=== PATIENT | female | born 1995 | race Caucasian/White ===

== ENCOUNTER 2022-06-03 10:16 | Emergency (ER) | payer MEDICAID ==
[~2022-06-03] VITALS: Ht 157.5 cm; Wt 100.0 kg
[2022-06-03 10:57] LABS: BASOPHILS # (AUTO) 0.1 X10'3 (0-0.2); BASOPHILS % (AUTO) 0.6 % (0-1); EOSINOPHILS # (AUTO) 0.6 X10'3 (0-0.9); EOSINOPHILS % (AUTO) 4.9 % (0-6); HEMOGLOBIN 14.9 g/dl (12.0-16.0); LYMPHOCYTES # (AUTO) 2.8 X10'3 (1.1-4.8); LYMPHOCYTES % (AUTO) 23.9 % (21-51); MEAN CORPUSCULAR HEMOGLOBIN 29.6 PG (27.0-31.0); MEAN CORPUSCULAR HGB CONC 33.9 g/dL (33.0-36.5); MEAN CORPUSCULAR VOLUME 87.5 FL (78-98); MONOCYTES # (AUTO) 0.9 X10'3 (0-0.9); MONOCYTES % (AUTO) 7.4 % (2-12); NEUTROPHILS # (AUTO) 7.4 X10'3 (1.8-7.7); NEUTROPHILS % (AUTO) 63.2 % (42-75); PLATELET COUNT 382 X10'3 (140-440); RED BLOOD COUNT 5.04 X10'6 (4.20-5.60); RED CELL DISTRIBUTION WIDTH 14.2 % (11.5-14.5); WHITE BLOOD COUNT 11.7 X10'3 (4.5-11.0)
[2022-06-03 10:58] LABS: CLARITY,URINE CLEAR (Clear); COLOR,URINE YELLOW (Yellow); GLUCOSE, URINE NEGATIVE (Neg); KETONES,URINE NEGATIVE (Neg); LEUKOCYTE ESTERASE ,URINE NEGATIVE (Neg); NITRITES, URINE NEGATIVE (Neg); OCCULT BLOOD,URINE NEGATIVE (Neg); PH,URINE 7.5 (4.8-8.0); PROTEIN,URINE NEGATIVE (Neg); UROBILINOGEN,URINE 0.2 E.U/dL (0.2-1.0)
[2022-06-03 11:00] LABS: URINE HCG NEGATIVE (NEG)
[2022-06-03 11:06] LABS: UA COLLECTION TYPE NON-SPECIFIED
[2022-06-03 11:22] LABS: ALANINE AMINOTRANSFERASE 23 U/L (12-78); ALBUMIN 3.8 G/DL (3.4-5.0); ALBUMIN/GLOBULIN RATIO 0.9 (1.1-1.5); ALKALINE PHOSPHATASE 94 IU/L (46-116); ANION GAP 10 (8-16); ASPARTATE AMINO TRANSFERASE 18 U/L (10-37); BILIRUBIN,TOTAL 0.4 MG/DL (0.1-1.0); BLOOD UREA NITROGEN 9 MG/DL (7-18); BUN/CREATININE RATIO 12.9 (6.6-38.0); CHLORIDE 103 MMOL/L (99-107); GLUCOSE 95 MG/DL (70-104); LIPASE 68 U/L (73-393); SODIUM 139 MMOL/L (135-145); TOTAL CARBON DIOXIDE 26.2 MMOL/L (24-32); eGFR > 90 ML/MIN
[2022-06-03] MEDS ORDERED: morphine 4 MG/ML inj SYRINge IV ONE (12:25)
[2022-06-03] MEDS ORDERED: ondansetron/PF 4mg/2ml inj IV ONE (12:25)
[2022-06-03] MEDS ORDERED: normal saline 1000ml 1,000 ML IV ONE (12:30)
--- NOTE | 2022-06-03 12:45 | NUR ---
pt to ct
[2022-06-03 13:18] VITALS: BP 135/68
[2022-06-03] MEDS ORDERED: ONDA4TAB12 PO (13:21)
== END 2022-06-03 13:42 | disposition home or self-care (01) ==
LOC: ER 10:17
DX: A08.4 Viral intestinal infection, unspecified (principal)
CPT/HCPCS: 36415; 74176; 80053; 81003; 81025; 83690; 85025; 96361; 96374; 96375; 99284; J2270; J2405; J7030

== ENCOUNTER 2022-06-10 06:21 | Emergency (ER) | payer MEDICAID ==
[~2022-06-10] VITALS: Ht 157.5 cm; Wt 97.7 kg
[~2022-06-10 06:21] MED LIST: ONDA4TAB12 PO
[2022-06-10 07:30] LABS: BASOPHILS % (AUTO) 0.3 % (0-1); EOSINOPHILS # (AUTO) 0.6 X10'3 (0-0.9); EOSINOPHILS % (AUTO) 6.8 % (0-6); HEMATOCRIT 39.6 % (35.0-45.0); HEMOGLOBIN 13.3 g/dl (12.0-16.0); LYMPHOCYTES # (AUTO) 2.1 X10'3 (1.1-4.8); LYMPHOCYTES % (AUTO) 25.4 % (21-51); MEAN CORPUSCULAR HEMOGLOBIN 29.3 PG (27.0-31.0); MEAN CORPUSCULAR HGB CONC 33.6 g/dL (33.0-36.5); MEAN CORPUSCULAR VOLUME 87.3 FL (78-98); MEAN PLATELET VOLUME 7.2 FL (7.4-10.4); MONOCYTES # (AUTO) 0.8 X10'3 (0-0.9); MONOCYTES % (AUTO) 9.4 % (2-12); NEUTROPHILS # (AUTO) 4.8 X10'3 (1.8-7.7); NEUTROPHILS % (AUTO) 58.1 % (42-75); PLATELET COUNT 340 X10'3 (140-440); RED BLOOD COUNT 4.54 X10'6 (4.20-5.60); RED CELL DISTRIBUTION WIDTH 14.1 % (11.5-14.5); WHITE BLOOD COUNT 8.3 X10'3 (4.5-11.0)
[2022-06-10 07:32] LABS: CLARITY,URINE CLEAR (Clear); COLOR,URINE YELLOW (Yellow); GLUCOSE, URINE NEGATIVE (Neg); KETONES,URINE NEGATIVE (Neg); LEUKOCYTE ESTERASE ,URINE NEGATIVE (Neg); NITRITES, URINE NEGATIVE (Neg); OCCULT BLOOD,URINE NEGATIVE (Neg); PH,URINE 6.5 (4.8-8.0); PROTEIN,URINE NEGATIVE (Neg); UROBILINOGEN,URINE 0.2 E.U/dL (0.2-1.0)
[2022-06-10 07:37] LABS: URINE HCG NEGATIVE (NEG)
[2022-06-10 07:43] LABS: UA COLLECTION TYPE CLN CATCH MIDSTREAM
[2022-06-10 07:46] LABS: ALANINE AMINOTRANSFERASE 33 U/L (12-78); ALBUMIN 3.3 G/DL (3.4-5.0); ALBUMIN/GLOBULIN RATIO 0.9 (1.1-1.5); ALKALINE PHOSPHATASE 87 IU/L (46-116); ANION GAP 11 (8-16); ASPARTATE AMINO TRANSFERASE 25 U/L (10-37); BILIRUBIN,TOTAL 0.4 MG/DL (0.1-1.0); BLOOD UREA NITROGEN 9 MG/DL (7-18); BUN/CREATININE RATIO 13.6 (6.6-38.0); CALCIUM 8.6 MG/DL (8.5-10.1); CHLORIDE 105 MMOL/L (99-107); CREATININE 0.66 MG/DL (0.40-0.90); GLUCOSE 103 MG/DL (70-104); LIPASE 83 U/L (73-393); POTASSIUM 3.6 MMOL/L (3.5-5.1); SODIUM 142 MMOL/L (135-145); TOTAL CARBON DIOXIDE 25.6 MMOL/L (24-32); eGFR > 90 ML/MIN
[2022-06-10] MEDS ORDERED: ketorolac trometh. 30mg/ml inj. IM ONE (10:20)
[2022-06-10 11:53] VITALS: BP 122/68
[2022-06-10 14:32] LABS: BETA HCG,QUANTITATIVE 34 mIU/ml
== END 2022-06-10 12:47 | disposition home or self-care (01) ==
LOC: ER 06:22
DX: R89.1 Abnormal level of hormones in specimens from other organs, systems and tissues (principal)
CPT/HCPCS: 36415; 76856; 80053; 81003; 81025; 83690; 84702; 85025; 93976; 96372; 99284; J1885

== ENCOUNTER 2022-06-19 10:24 | Emergency (ER) | payer OTHER, MEDICAID ==
[~2022-06-19] VITALS: Ht 157.5 cm; Wt 95.0 kg
[2022-06-19 10:48] VITALS: BP 127/61
[2022-06-19] MEDS ORDERED: orphenadrine citrate 60mg/2ml inj. IM ONE (11:55)
[2022-06-19] MEDS ORDERED: ondansetron 4mg rapidly disintigrating tab PO ONE (11:55)
[2022-06-19] MEDS ORDERED: ketorolac trometh inj. 60 MG/2 ML VIAL IM ONE (11:55)
[2022-06-19] MEDS ORDERED: acetaminophen/codeine 120mg/12mg per 5ml UD cup PO ONE (11:55)
--- NOTE | 2022-06-19 12:17 | NUR ---
PT REPORTS " I MAY BE ". URINE OBTAINED, PENDING RESULTS BEFORE ADMINISTERING MEDICATIONS AND XRAY.
[2022-06-19 12:29] LABS: URINE HCG NEGATIVE (NEG)
[2022-06-19] MEDS ORDERED: CYCL-1 PO (12:57)
== END 2022-06-19 13:16 | disposition home or self-care (01) ==
LOC: ER 10:25
DX: S39.012A Strain of muscle, fascia and tendon of lower back, initial encounter (principal); Z72.89 Other problems related to lifestyle; Z79.899 Other long term (current) drug therapy; X58.XXXA Exposure to other specified factors, initial encounter; Y93.89 Activity, other specified; Y92.89 Other specified places as the place of occurrence of the external cause; Y99.8 Other external cause status
CPT/HCPCS: 72100; 81025; 96372; 99284; J1885; J2360

== ENCOUNTER 2022-12-11 01:20 | Emergency (ER) | payer MEDICAID, OTHER ==
[~2022-12-11] VITALS: Ht 157.5 cm; Wt 100.0 kg
[~2022-12-11 01:20] MED LIST changes: +CYCL-1 PO
[2022-12-11] MEDS ORDERED: ketorolac trometh. 30mg/ml inj. IV ONE (01:35)
[2022-12-11] MEDS ORDERED: morphine 4 MG/ML inj SYRINge IV ONE ×2 (01:35→02:30)
[2022-12-11] MEDS ORDERED: ondansetron/PF 4mg/2ml inj IV ONE (01:35)
[2022-12-11 01:51] LABS: BASOPHILS # (AUTO) 0.1 X10'3 (0-0.2); BASOPHILS % (AUTO) 0.5 % (0-1); EOSINOPHILS # (AUTO) 1.2 X10'3 (0-0.9); EOSINOPHILS % (AUTO) 7.9 % (0-6); HEMATOCRIT 39.4 % (35.0-45.0); HEMOGLOBIN 13.4 g/dl (12.0-16.0); LYMPHOCYTES # (AUTO) 4.6 X10'3 (1.1-4.8); LYMPHOCYTES % (AUTO) 30.2 % (21-51); MEAN CORPUSCULAR HEMOGLOBIN 29.3 PG (27.0-31.0); MEAN CORPUSCULAR HGB CONC 34.1 g/dL (33.0-36.5); MEAN CORPUSCULAR VOLUME 86.1 FL (78-98); MONOCYTES # (AUTO) 1.4 X10'3 (0-0.9); NEUTROPHILS % (AUTO) 52.4 % (42-75); PLATELET COUNT 358 X10'3 (140-440); RED BLOOD COUNT 4.58 X10'6 (4.20-5.60); WHITE BLOOD COUNT 15.2 X10'3 (4.5-11.0)
[2022-12-11 02:02] LABS: ALANINE AMINOTRANSFERASE 29 U/L (12-78); ALBUMIN 3.4 G/DL (3.4-5.0); ALBUMIN/GLOBULIN RATIO 0.9 (1.1-1.5); ALKALINE PHOSPHATASE 114 IU/L (46-116); ANION GAP 8 (8-16); ASPARTATE AMINO TRANSFERASE 11 U/L (10-37); BILIRUBIN,TOTAL 0.3 MG/DL (0.1-1.0); BLOOD UREA NITROGEN 10 MG/DL (7-18); CALCIUM 8.5 MG/DL (8.5-10.1); CHLORIDE 103 MMOL/L (99-107); CREATININE 0.83 MG/DL (0.40-0.90); GLUCOSE 108 MG/DL (70-104); LIPASE 177 U/L (73-393); POTASSIUM 3.8 MMOL/L (3.5-5.1); SODIUM 137 MMOL/L (135-145); TOTAL CARBON DIOXIDE 26.5 MMOL/L (24-32); TOTAL PROTEIN 7.2 G/DL (6.4-8.2); eGFR 83 ML/MIN
[2022-12-11 02:15] LABS: CLARITY,URINE SLIGHTLY CLOUDY (Clear); COLOR,URINE YELLOW (Yellow); GLUCOSE, URINE NEGATIVE (Neg); KETONES,URINE NEGATIVE (Neg); LEUKOCYTE ESTERASE ,URINE NEGATIVE (Neg); NITRITES, URINE NEGATIVE (Neg); OCCULT BLOOD,URINE NEGATIVE (Neg); PROTEIN,URINE NEGATIVE (Neg); UROBILINOGEN,URINE 0.2 E.U/dL (0.2-1.0)
[2022-12-11 02:20] LABS: UA COLLECTION TYPE CLN CATCH MIDSTREAM
[2022-12-11 02:21] LABS: MUCUS STRANDS MANY /LPF (Neg); SQUAMOUS EPITHELIAL CELL,UR MANY /LPF (FEW); TRANSITIONAL EPI CELLS,URINE FEW /HPF; URINE HCG NEGATIVE (NEG)
[2022-12-11 02:22] LABS: BACTERIA,URINE 1+ /HPF (Neg); WBC,URINE 0-4 /HPF (0-4)
[2022-12-11] MEDS ORDERED: HYDR-3965 PO (03:24)
[2022-12-11] MEDS ORDERED: ONDA8TAB13 PO (03:24)
[2022-12-11 03:38] VITALS: BP 119/77
== END 2022-12-11 03:39 | disposition home or self-care (01) ==
LOC: ER 01:21
DX: K80.20 Calculus of gallbladder without cholecystitis without obstruction (principal)
CPT/HCPCS: 36415; 76700; 80053; 81001; 81025; 83690; 85025; 96374; 96375; 96376; 99285; J1885; J2270; J2405

== ENCOUNTER 2023-04-14 16:27 | Emergency (ER) | payer MEDICAID ==
[~2023-04-14] VITALS: Ht 157.5 cm; Wt 120.0 kg
[~2023-04-14 16:27] MED LIST changes: +ONDA8TAB13 PO
[2023-04-14 16:34] VITALS: BP 121/75; PULSE 78; RESP 18; TEMP 97.8; O2SAT 98
== END 2023-04-14 19:18 | disposition left against medical advice (07) ==
LOC: ER 16:27
DX: R11.2 Nausea with vomiting, unspecified (principal); Z53.21 Procedure and treatment not carried out due to patient leaving prior to being seen by health care provider
CPT/HCPCS: 99281

== ENCOUNTER 2023-10-14 13:11 | Emergency (ER) | payer MEDICAID ==
[~2023-10-14] VITALS: Ht 157.5 cm; Wt 105.2 kg
[2023-10-14 13:20] VITALS: BP 137/87; PULSE 97; TEMP 98.7; O2SAT 98
[2023-10-14] MEDS ORDERED: ketorolac trometh. 30mg/ml inj. IM ONE (14:35)
[2023-10-14] MEDS ORDERED: CYCL-1 PO (14:40)
[2023-10-14] MEDS ORDERED: PRED20TA PO (14:40)
[2023-10-14] MEDS ORDERED: IBUP-1984 PO (14:40)
[2023-10-14 15:07] VITALS: RESP 16
[2023-10-14] MEDS: ketorolac tromethamine 15mg/ml inj. IM ONE (15:07)
[2023-10-14] MEDS: cyclobenzaprine 10mg tablet PO ONE (15:07)
[2023-10-14] MEDS: predniSONE 20 mg tablet PO ONE (15:08)
== END 2023-10-14 15:24 | disposition home or self-care (01) ==
LOC: ER 13:12
DX: S39.012A Strain of muscle, fascia and tendon of lower back, initial encounter (principal); M54.32 Sciatica, left side; Z79.899 Other long term (current) drug therapy; Z79.1 Long term (current) use of non-steroidal anti-inflammatories (NSAID); X58.XXXA Exposure to other specified factors, initial encounter; Y93.89 Activity, other specified; Y92.89 Other specified places as the place of occurrence of the external cause; Y99.8 Other external cause status
CPT/HCPCS: 96372; 99283; J1885; J7512

== ENCOUNTER 2023-11-04 09:49 | Emergency (ER) | payer MEDICAID ==
[~2023-11-04] VITALS: Ht 157.5 cm; Wt 114.0 kg
[2023-11-04 10:13] VITALS: BP 127/83; PULSE 88; O2SAT 100
[2023-11-04] MEDS ORDERED: ketorolac trometh. 30mg/ml inj. IM ONE (12:10)
[2023-11-04] MEDS ORDERED: oxybutynin 5mg tablet PO SCH (12:10)
[2023-11-04] MEDS ORDERED: LIDO700A47 TOP (12:16)
[2023-11-04] MEDS ORDERED: IBUP-1986 PO (12:16)
[2023-11-04] MEDS ORDERED: CYCL-394 PO (12:16)
[2023-11-04] MEDS: oxyCODONE IR 5mg (immed. release) tablet PO ONE (12:57)
[2023-11-04] MEDS: orphenadrine citrate 60mg/2ml inj. IM ONE (12:58)
[2023-11-04] MEDS: ketorolac tromethamine 15mg/ml inj. IM ONE (13:00)
[2023-11-04 13:14] VITALS: RESP 18; TEMP 97.5
== END 2023-11-04 13:16 | disposition home or self-care (01) ==
LOC: ER 09:49
DX: M54.50 Low back pain, unspecified (principal); Z79.899 Other long term (current) drug therapy; Z79.1 Long term (current) use of non-steroidal anti-inflammatories (NSAID)
CPT/HCPCS: 96372; 99284; J1885; J2360

== ENCOUNTER 2023-11-11 11:04 | Emergency (ER) | payer SELFPAY ==
[~2023-11-11] VITALS: Ht 157.5 cm; Wt 109.1 kg
[~2023-11-11 11:04] MED LIST changes: +CYCL-394 PO; +IBUP-1986 PO; +LIDO700A47 TOP
[2023-11-11 12:03] VITALS: BP 140/78; PULSE 100; O2SAT 98
[2023-11-11] MEDS ORDERED: NAPR-56 PO (12:52)
[2023-11-11 13:01] VITALS: RESP 18; TEMP 97.9
== END 2023-11-11 12:57 | disposition home or self-care (01) ==
LOC: ER 11:04
DX: S93.492A Sprain of other ligament of left ankle, initial encounter (principal); Z72.89 Other problems related to lifestyle; Z79.899 Other long term (current) drug therapy; Z79.1 Long term (current) use of non-steroidal anti-inflammatories (NSAID); W18.39XA Other fall on same level, initial encounter; Y93.89 Activity, other specified; Y92.89 Other specified places as the place of occurrence of the external cause; Y99.8 Other external cause status
CPT/HCPCS: 73610; 99284; A6449

== ENCOUNTER 2023-12-08 18:26 | Emergency (ER) | payer MEDICAID ==
[~2023-12-08] VITALS: Ht 157.5 cm; Wt 113.6 kg
[~2023-12-08 18:26] MED LIST changes: -CYCL-394 PO; +NAPR-56 PO
[2023-12-08 18:43] VITALS: BP 126/70; PULSE 82; RESP 18; TEMP 98.9; O2SAT 100
[2023-12-08] MEDS: normal saline 1000ml 1,000 ML IV ONE (20:51)
[2023-12-08] MEDS: ondansetron/PF 4mg/2ml inj IV ONE (20:55)
[2023-12-08] MEDS ORDERED: ONDA8TAB13 PO (21:38)
== END 2023-12-08 21:52 | disposition home or self-care (01) ==
LOC: ER 18:27
DX: R11.2 Nausea with vomiting, unspecified (principal); R19.7 Diarrhea, unspecified; Z72.89 Other problems related to lifestyle; Z79.899 Other long term (current) drug therapy; Z79.2 Long term (current) use of antibiotics
CPT/HCPCS: 96361; 96374; 99283; J2405; J7030

== ENCOUNTER 2024-12-17 12:17 | Emergency (ER) | payer SELFPAY ==
[~2024-12-17] VITALS: Ht 157.5 cm; Wt 100.9 kg
[~2024-12-17 12:17] MED LIST changes: +BUS15T PO; -CYCL-1 PO; -IBUP-1986 PO; +LAMO100T PO; -LIDO700A47 TOP; +LIDO700A47 TP; -NAPR-56 PO; -ONDA4TAB12 PO; -ONDA8TAB13 PO; +SERT-433 PO; +TRAZ150T78 PO
--- NOTE | 2024-12-17 12:52 | Physician Documentation ---
HPI ~ General Chief Complaint: Tooth Problem Stated Complaint: TOOTH PAIN Time Seen by MD: 12:51 Primary Medical Doctor: NELSON AARON History of Present Illness HPI Comment 29-year-old female presents to the emergency department reporting that she has been on Augmentin for the last week for right lower jaw dental pain. She reports no improvement in symptoms, return to [facility], no further interventions were undertaken. She does have an upcoming dental appointment but is concerned because the pain is getting worse, and is involving the right jaw. No fevers or chills, but does endorse feeling overall unwell and having nausea. Medication Reconciliation Allergies: Coded Allergies: No Known Allergies (Unverified , 12/17/24) Scheduled Buspirone HCl (Buspirone HCl), 15 MG PO BID Lamotrigine (LaMICtal tablet), 100 MG PO BID Lidocaine (Lidocaine), 1 PATCH TP DAILY Sertraline HCl (Sertraline HCl), 50 MG PO DAILY Trazodone Hcl (Trazodone Hcl), 150 MG PO HS@20 Past Medical History Past Medical History: *RENAL/*, Chronic Pain Past Surgical History: no surgical history Patient History: FHx: COPD (chronic obstructive pulmonary disease) FHx: cancer Paternal Greatgrandmother Alcohol Use: Occasionally Lives with: S/O Lives In: Home Review of Systems ROS As stated above in the HPI, otherwise all systems are reviewed and negative. Physical Exam Vital Signs: Temperature: 98.5, Source: Temporal, Heart Rate: 80, Respiratory Rate: 16, BP: 156/81, Pulse Oximetry: 99, Weight: 100.910 Oxygen Flow Rate: 0 Physical Exam General: Alert, no apparent distress. HEENT: PERRL, EOMI, no injection, moist mucous membranes. No trismus (+) right mastoid tenderness. Both ear canals are clear altho cerumen partially occludes right canal. TMs visualized as normal. Some erythema surrounds right lower molar, second from last, but no abscess is appreciated. Neck: Full range of motion. Respiratory: Lungs clear, no respiratory distress. Chest: No accessory muscle use. Cardiovascular: Regular rate and rhythm, no murmurs. Gastrointestinal: Soft, nontender, nondistended. Bowels sounds present. Extremities: Normal range of motion, no deformity. Neurologic: Oriented x4. Psychiatric: Normal mood and affect. Skin: Normal color, warm and dry. No edema, no ecchymosis. Progress Results/Orders Results/Orders Orders - EDITH ENCARNACION [employer]CE[employer] FABRICATOR * Iv Access / Saline Lock * (12/17/24 12:59) Ct Facial Bones/Soft Tissue (12/17/24 12:59) Culture Blood (12/17/24 12:59) Completed Orders - EDITH ENCARNACION [employer] FABRICATOR Morphine 4mg/Ml Inj. (Morphine Inj.) (12/17/24 13:00) Ondansetron Inj. (Zofran 4mg/2ml Vial) (12/17/24 13:00) Ct Facial Bones/Soft Tissue (12/17/24 12:59) Ampicillin/Sulbac 3gm/Ns 100ml (Unasyn 3 (12/17/24 12:59) Procalcitonin (12/17/24 12:59) LA (12/17/24 12:59) C-Reactive Protein (12/17/24 12:59) Hcg Serum Ql (12/17/24 12:59) Ketorolac Trometh 15mg/Ml Vial (Toradol (12/17/24 14:10) Prochlorperazine Inj (Compazine Inj) (12/17/24 14:20) Diphenhydramine Inj (Benadryl Inj.) (12/17/24 14:20) Mag & Alum Hydrox/Simeth Susp (Maalox Or (12/17/24 14:20) Famotidine/Pf Iv Inj (Pepcid Iv Inj) (12/17/24 14:20) Electrocardiogram (12/17/24 14:20) Iohexol 300mg/Ml 100ml Inj. (Omnipaque-3 (12/17/24 14:59) Cbc/Diff (12/17/24 15:46) BMP (12/17/24 13:49) Medications Received in ER Medications (Trade) Dose Ordered Sig/Latia Route PRN Reason Start Time Stop Time Status Last Admin Dose Admin (morphine inj.) 4 mg ONCE ONCE IV 12/17/24 13:00 12/17/24 13:02 DC 12/17/24 13:34 4 MG (Zofran 4mg/2ml vial) 4 mg ONCE ONCE IV 12/17/24 13:00 12/17/24 13:02 DC 12/17/24 13:34 4 MG Ampicillin Sodium/ Sulbactam Sodium 100 ml @ 200 mls/hr NOW STAT IV 12/17/24 12:59 12/17/24 13:28 DC 12/17/24 14:51 200 MLS/HR (Toradol injection) 15 mg ONCE ONCE IV 12/17/24 14:10 12/17/24 14:11 DC 12/17/24 14:38 15 MG (Compazine inj) 10 mg ONCE ONCE IV 12/17/24 14:20 12/17/24 14:21 DC 12/17/24 14:38 10 MG (Benadryl inj.) 25 mg ONCE ONCE IV 12/17/24 14:20 12/17/24 14:21 DC 12/17/24 14:38 25 MG (Maalox oral suspension) 30 ml ONCE ONCE PO 12/17/24 14:20 12/17/24 14:21 DC 12/17/24 14:38 30 ML (Pepcid IV inj) 20 mg ONCE ONCE IV 12/17/24 14:20 12/17/24 14:21 DC 12/17/24 14:38 20 MG Vital Signs 12/17/24 12/17/24 12/17/24 12/17/24 12:41 13:34 14:38 14:52 Temp 98.5 Pulse 80 Resp 16 16 16 14 B/P (MAP) 156/81 Pulse Ox 99 O2 Flow Rate 0 12/17/24 12/17/24 12/17/24 14:52 17:32 17:36 Temp 98.5 Pulse 71 Resp 14 15 15 B/P (MAP) 120/66 (84) Pulse Ox 98 O2 Flow Rate 0 Laboratory Tests Test 12/17/24 13:49 White Blood Count 10.4 Red Blood Count 5.07 Hemoglobin 15.0 Hematocrit 43.4 Mean Corpuscular Volume 85.7 Mean Corpuscular Hemoglobin 29.5 Mean Corpuscular Hemoglobin Concent 34.4 Red Cell Distribution Width 14.6 H Platelet Count 387 Mean Platelet Volume 7.6 Neutrophils (%) (Auto) 62.6 Lymphocytes (%) (Auto) 24.8 Monocytes (%) (Auto) 7.8 Eosinophils (%) (Auto) 4.4 Basophils (%) (Auto) 0.4 Neutrophils # (Auto) 6.5 Lymphocytes # (Auto) 2.6 Monocytes # (Auto) 0.8 Eosinophils # (Auto) 0.5 Basophils # (Auto) 0.0 CBC Comment Sodium Level 133 L Potassium Level 3.8 Chloride Level 103 Carbon Dioxide Level 25.9 Anion Gap 4 L Blood Urea Nitrogen 8 Creatinine 0.83 Estimated GFR/1.73 m2 82 BUN/Creatinine Ratio 9.6 L Glucose Level 85 Lactic Acid Level 0.8 Calcium Level 8.9 C-Reactive Protein 0.86 H Albumin 3.7 Procalcitonin < 0.05 Human Chorionic Gonadotropin, Qual Negative Chemistry Comments Microbiology Date/Time Source Procedure Growth Status 12/17/24 13:53 Blood Hand Right Blood Culture - Preliminary NEGATIVE (LESS THAN 24 HOURS) Resulted EKG/XRAY/CT/US/VASC/MRI CT : Impression [facility] [address] [facility] [address] CAT SCAN Patient: ELICIA BUCK Medical Record: [id number] [facility] : 1995, Age: 29 Sex: Female Location: ER Patient Status: REG ER Service Date/Time: 12/17/241258 Ordering Physician: EDITH ENCARNACION [employer] FABRICATOR Exam: CT FACIAL BONES/SOFT TISSUE CT FACE WITH INTRAVENOUS CONTRAST REASON FOR EXAM: R mastoid tenderness after a week on antibiotics COMPARISON: None TECHNIQUE: Axial CT images of the face were obtained after intravenous contrast administration. 2-D coronal and sagittal reformatted images were provided. Automated exposure control was used. LABS: Current laboratory values provided were reviewed or point of care testing was performed to verify the patient meets current departmental guidelines for contrast media administration per protocol. CONTRAST ADMINISTERED: 100 mL omnipaque 300, intravenously MEDICATIONS: The patient's medications were reviewed. RADIATION DOSE: CTDI: 54 mGy DLP 1260 mGy-cm FINDINGS: The globes are intact. There is no thickening of the extra-ocular muscles. The intraorbital contents are unremarkable. The parotid, submandibular, and sublingual glands are within normal limits and grossly symmetric. The visualized thyroid gland is within normal limits. There is no cervical lymphadenopathy. The mastoid air cells are clear of fluid. There are tiny retention cysts versus polyps in bilateral maxillary sinuses. The visualized paranasal sinuses are otherwise clear. There is some debris in bilateral external auditory canals, the right greater than left. There is no fluid identified in either middle ear. No abnormal enhancement or fluid collection is identified in the face or visualized neck. There is a partially calcified round nodule in the subcutaneous fat of the left occipital scalp, likely a sebaceous cyst. IMPRESSION: No acute abnormal CT findings of the face or visualized neck. No fluid is identified in the mastoid air cells. Debris in bilateral external auditory canals, possibly cerumen. Correlate with direct visualization. Electronically Signed by:EDWIN LERMA MD Date & Time: 12/17/241739 Dictated by: EDWIN LERMA MD Dictation date and time: 12/17/241739 Primary Care Provider: NO PRIMARY CARE PROVIDER cc: EDITH ENCAR[employer]CION [employer] FABRICATOR ~ Medical Decision Making Additional Comment 29-year-old female presented due to dental infection with right jaw pain and facial swelling. She had completed a week of Augmentin, and reported no improvement in symptoms. CT of the face was pursued, no deep space abscess was identified. Patient will be sent home on clindamycin and naproxen. She did receive one dose of IV Unasyn in the ER. She is to follow up with her dentist as planned within the next week, or return if worse. Departure Time of Disposition: 17:47 Disposition: 01 HOME / SELF CARE / HOMELESS Impression: Primary Impression: Toothache Additional Impression: Dental caries Discharge Instructions: Dental Caries, Adult, Dental Pain Additional Instructions: No concerns on CT for dangerous things like deep space infection. Start the clindamycin tomorrow. See your dentist as planned. Naproxen for pain. Return if worse. Referrals: NO PRIMARY CARE PROVIDER (PCP) Prescriptions Clindamycin HCL* (Clindamycin HCL*) 300 Mg Capsule 1 CAP PO Q12H for 7 Days, #14 CAP 0 Refills Prov: EDITH ENCARNACION NP 12/17/24 Naproxen (Naproxen) 500 Mg Tablet 1 TAB PO Q12H, #20 TAB Prov: EDITH ENCARNACION NP 12/17/24 Education Educated: Patient, Family Educated regarding: diagnosis, treatment, prognosis, need for follow up Signature Scribe Signature: no scribe Attestation: The note accurately reflects work and decisions made by me.Edith Antunez NP 12/17/24 17:49 EDITH ENCARNACION NP Dec 17, 2024 12:52
[2024-12-17] MEDS: morphine 4 MG/ML inj SYRINge IV ONE (13:34)
[2024-12-17] MEDS: ondansetron/PF 4mg/2ml inj IV ONE (13:34)
[2024-12-17 14:35] LABS: HCG SERUM QL NEGATIVE
[2024-12-17 14:37] LABS: C-REACTIVE PROTEIN 0.86 MG/DL (0.0-0.5)
[2024-12-17] MEDS: famotidine/PF 10 mg/ml inj IV ONE (14:38)
[2024-12-17] MEDS: diphenhydrAMINE 50 mg/ml inj IV ONE (14:38)
[2024-12-17] MEDS: ketorolac trometh 15mg/ml vial 15 MG/ML ML IV ONE (14:38)
[2024-12-17] MEDS: proCHLORperazine 10 MG/2 ml inj IV ONE (14:38)
[2024-12-17] MEDS: mag hydrox/Alum hydrox/simeth 30ml oral suspension PO ONE (14:38)
--- NOTE | 2024-12-17 14:50 | ELECTROCARDIOGRAPH REPORT ---
[facility] Test Date: 2024-12-17 Test Time: 14:49:07 Pat Name: ELICIA BUCK Department: [facility]- Patient ID: [facility]-[id number] Room: Gender: F Spudder: : 1995 Requested By: EDITH ENCARNACION Order Number: [id number] Reading MD: Measurements Intervals [place] Rate: 67 P: 44 ND: 134 QRS: 41 QRSD: 76 T: 7 QT: 397 QTc: 419 Interpretive Statements Sinus rhythm Please click the below link to view image of tracing.
[2024-12-17] MEDS: ampicillin/sulbac 3gm/NS 100ml 100 ML IV STA (14:51)
[2024-12-17] MEDS ORDERED: iohexol 300mg/ml 100ml inj. ONE (14:59)
[2024-12-17 16:31] LABS: BASOPHILS % (AUTO) 0.4 % (0-1); EOSINOPHILS # (AUTO) 0.5 X10'3 (0-0.9); EOSINOPHILS % (AUTO) 4.4 % (0-6); HEMATOCRIT 43.4 % (35.0-45.0); LYMPHOCYTES # (AUTO) 2.6 X10'3 (1.1-4.8); LYMPHOCYTES % (AUTO) 24.8 % (21-51); MEAN CORPUSCULAR HEMOGLOBIN 29.5 PG (27.0-31.0); MEAN CORPUSCULAR HGB CONC 34.4 g/dL (33.0-36.5); MEAN CORPUSCULAR VOLUME 85.7 FL (78-98); MEAN PLATELET VOLUME 7.6 FL (7.4-10.4); MONOCYTES # (AUTO) 0.8 X10'3 (0-0.9); MONOCYTES % (AUTO) 7.8 % (2-12); NEUTROPHILS # (AUTO) 6.5 X10'3 (1.8-7.7); NEUTROPHILS % (AUTO) 62.6 % (42-75); PLATELET COUNT 387 X10'3 (140-440); RED BLOOD COUNT 5.07 X10'6 (4.20-5.60); RED CELL DISTRIBUTION WIDTH 14.6 % (11.5-14.5); WHITE BLOOD COUNT 10.4 X10'3 (4.5-11.0)
[2024-12-17 16:33] LABS: ALBUMIN 3.7 G/DL (3.4-5.0); ANION GAP 4 (8-16); BLOOD UREA NITROGEN 8 MG/DL (7-18); BUN/CREATININE RATIO 9.6 (10.0-20.0); CALCIUM 8.9 MG/DL (8.5-10.1); CHLORIDE 103 MMOL/L (99-107); CREATININE 0.83 MG/DL (0.40-0.90); GLUCOSE 85 MG/DL (70-104); POTASSIUM 3.8 MMOL/L (3.5-5.1); SODIUM 133 MMOL/L (135-145); TOTAL CARBON DIOXIDE 25.9 MMOL/L (24-32); eCRCL 80 ML/MIN; eGFR 82 ML/MIN
--- NOTE | 2024-12-17 17:43 | RADIOLOGY REPORT ---
CT FACE WITH INTRAVENOUS CONTRAST REASON FOR EXAM: R mastoid tenderness after a week on antibiotics COMPARISON: None TECHNIQUE: Axial CT images of the face were obtained after intravenous contrast administration. 2-D coronal and sagittal reformatted images were provided. Automated exposure control was used. LABS: Current laboratory values provided were reviewed or point of care testing was performed to ninfa uziel the patient meets current departmental guidelines for contrast media administration per protocol. CONTRAST ADMINISTERED: 100 mL omnipaque 300, intravenously MEDICATIONS: The patient's medications were reviewed. RADIATION DOSE: CTDI: 54 mGy DLP 1260 mGy-cm FINDINGS: The globes are intact. There is no thickening of the extra-ocular muscles. The intraorbita l contents are unremarkable. The parotid, submandibular, and sublingual glands are within normal limi ts and grossly symmetric. The visualized thyroid gland is within normal limits. There is no cervical lymphadenopathy. The mastoid air cells are clear of fluid. There are tiny retention cysts versus naomi yps in bilateral maxillary sinuses. The visualized paranasal sinuses are otherwise clear. There is s ome debris in bilateral external auditory canals, the right greater than left. There is no fluid iden tified in either middle ear. No abnormal enhancement or fluid collection is identified in the face or visualized neck. There is a partially calcified round nodule in the subcutaneous fat of the left occ ipital scalp, likely a sebaceous cyst. IMPRESSION: No acute abnormal CT findings of the face or visualized neck. No fluid is identified in the mastoid a ir cells. Debris in bilateral external auditory canals, possibly cerumen. Correlate with direct visualization.
[2024-12-17] MEDS ORDERED: NAPR-56 PO (17:48)
[2024-12-17] MEDS ORDERED: CLIN-97 PO (17:48)
[2024-12-17 18:32] VITALS: BP 120/66; PULSE 74; RESP 12; TEMP 98.6; O2SAT 100
== END 2024-12-17 18:24 | disposition home or self-care (01) ==
LOC: ER 12:18
DX: K02.9 Dental caries, unspecified (principal); R51.9 Headache, unspecified
CPT/HCPCS: 36415; 70487; 80048; 83605; 84145; 84703; 85025; 86140; 87040; 93005; 96365; 96375; 99285; J0295; J0780; J1200; J1885; J2270; J2405; J3490; Q9967

== ENCOUNTER 2025-01-05 13:59 | Emergency (ER) | payer SELFPAY ==
[~2025-01-05] VITALS: Ht 157.5 cm; Wt 81.5 kg
[~2025-01-05 13:59] MED LIST changes: +CLIN-97 PO; +NAPR-56 PO
[2025-01-05 14:00] VITALS: BP 126/66; PULSE 96; RESP 16; TEMP 98.6; O2SAT 98
--- NOTE | 2025-01-05 14:07 | Physician Documentation ---
History of Present Illness ~ Stated Complaint: DIZZINESS AND HAND NUMBNESS Time Seen by MD: 14:13 Primary Medical Doctor: NELSON AARON HPI 29-year-old female presents to the ED with a complaint of months of increasing numbness and tingling in her upper right extremity. 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 denies any acute injury denies any history of neck pain or neck injury Day of Onset: Jan 05, 2025 Tetanus witin 5 years: Yes Medication Reconciliation Allergies: Coded Allergies: No Known Allergies (Unverified , 01/05/25) Scheduled Buspirone HCl (Buspirone HCl), 15 MG PO BID Clindamycin HCL* (Clindamycin HCL*), 1 CAP PO Q12H Lamotrigine (LaMICtal tablet), 100 MG PO BID Lidocaine (Lidocaine), 1 PATCH TP DAILY Naproxen (Naproxen), 1 TAB PO Q12H Sertraline HCl (Sertraline HCl), 50 MG PO DAILY Trazodone Hcl (Trazodone Hcl), 150 MG PO HS@20 Past Medical History Past Medical History: *RENAL/*, Chronic Pain Past Surgical History: no surgical history Patient History: FHx: COPD (chronic obstructive pulmonary disease) FHx: cancer Paternal Greatgrandmother Alcohol Use: Occasionally Lives with: S/O Lives In: Home Review of Systems All Other Systems at this time: Reviewed and Negative ROS As stated above in the HPI, otherwise all systems are reviewed and negative. Physical Exam Vital Signs: Temperature: 98.6, Heart Rate: 96, Respiratory Rate: 16, BP: 126/66, Pulse Oximetry: 98, Weight: 81.450 Oxygen Flow Rate: 0 Physical Exam General: Alert, no apparent distress. Extremities: Normal range of motion, no deformity. positive Tinel's test positivePhalen's test Neurologic: Oriented x4. Psychiatric: Normal mood and affect. Skin: Normal color, warm and dry. No edema, no ecchymosis. Progress Results/Orders Results/Orders Medical Decision Making Findings Patient presents with a clinical indications for carpal tunnel syndrome. This is also likely due to her occupation of trimming which he uses excessive hand and wrist movement.. No acute injury I do not see any reason to pursue imaging at this time. This patient will likely benefit from a nerve conduction study in the outpatient setting. I will advise her of this. Departure Disposition: HOME / SELF CARE / HOMELESS Impression: Primary Impression: Carpal tunnel syndrome Discharge Instructions: Carpal Tunnel Syndrome, [id number] Additional Instructions: I suspect that she were suffering carpal tunnel syndrome symptoms.. To pain the official diagnosis you will need to get a nerve conduction study which can be obtained through referral from your primary care. Often times carpal tunnel syndrome will worsen over time. You may use the wrist brace provided especially at night. This can help with some symptoms will not ultimately alleviate carpal tunnel. Essentially the nerve in your wrist is in trapped and inflamed which is causing your numbness and tingling Referrals: NO PRIMARY CARE PROVIDER (PCP) Signature Scribe Signature: t Attestation: Scribed for Dave Hernandez Oracle Database Manager by Dave Antunez NP . 01/05/25 14:25 DAVE HERNANDEZ NP Jan 05, 2025 14:07 KEYON BARNHART MD Jan 10, 2025 11:33
== END 2025-01-05 14:44 | disposition home or self-care (01) ==
LOC: ER 14:00
DX: G56.00 Carpal tunnel syndrome, unspecified upper limb (principal)
CPT/HCPCS: 29125; 99283